=== PATIENT | male | born 1965 | race Caucasian/White ===

== ENCOUNTER 2017-02-27 10:36 | Day surgery (SDC) | payer OTHER ==
[2017-02-27] MEDS ORDERED: ACET-1600 PO (11:25)
[2017-02-27] MEDS ORDERED: BACL-19 PO (11:25)
[2017-02-27] MEDS ORDERED: GABA300C10 PO (11:25)
[2017-02-27] MEDS ORDERED: ATOR40TA PO (11:25)
[2017-02-27] MEDS ORDERED: TRAM50TA2 PO (11:25)
[2017-02-27] MEDS ORDERED: ASPI-515 PO (11:25)
[2017-02-27] MEDS ORDERED: NALOXONE 0.4 MG/ML, 1ML IVPush PRN ×2 (11:30)
[2017-02-27] MEDS ORDERED: PROPOFOL 10 MG/ML, 50ML ONE (11:46)
== END 2017-02-27 13:45 | disposition home or self-care (01) ==
LOC: CACL 10:36
PROVIDERS: ATTEND Internal Medicine Cardiovascular Disease
DX: I63.9 Cerebral infarction, unspecified (principal); I34.0 Nonrheumatic mitral (valve) insufficiency; Z79.82 Long term (current) use of aspirin
CPT/HCPCS: 93312; 93325; 93880; J2704